=== PATIENT | male | born 1975 | race Caucasian/White ===

== ENCOUNTER 2018-03-04 15:30 | Emergency (ER) | payer MEDICARE, MEDICAID ==
[2018-03-04 16:07] LABS: #Lymphocytes 1.1 thou/uL (1.20-3.40); #Monocytes 0.6 thou/uL (0.11-0.59); #Neutrophils 9.5 thou/uL (1.40-6.50); %Eosinophils 0.4 % (0.0-10.0); %Lymphocytes 9.9 % (21.0-51.0); %Monocytes 5.6 % (0.0-10.0); %Neutrophils 84.1 % (42.0-75.0); Hemoglobin 13.8 g/dL (14.0-18.0); Mean Corpuscular Hemoglobin 32.8 pg (27.0-31.0); Mean Corpuscular Volume 96.4 fl (80.0-94.0); Mean Platelet Volume 9.7 fL (7.4-10.4); Platelet Count 149 thou/uL (130-400); RBC Distribution Width 12.9 % (11.5-14.5); Red Blood Cell (RBC) Count 4.22 mill/uL (4.70-6.10); White Blood Cell (WBC) Count 11.3 thou/uL (4.8-10.8)
[2018-03-04 16:12] LABS: Prothrombin Time 23.3 SEC (12.0-14.7)
[2018-03-04 16:13] LABS: PTT 36.1 SEC (22.9-36.1)
[2018-03-04 16:29] LABS: ALT (SGPT) 12 U/L (8-55); AST (SGOT) 15 U/L (5-34); Albumin 4.2 g/dL (3.5-5.0); Alkaline Phosphatase 87 U/L (40-150); Anion Gap 14 mmol/L (10-20); BUN (Urea Nitrogen) 35 mg/dL (8.9-20.6); Bilirubin, Total 0.5 mg/dL (0.2-1.2); Calc. Creatinine Clearance 0 mL/min (70-130); Calcium 9.4 mg/dL (7.8-10.44); Carbon Dioxide 22 mmol/L (22-29); Chloride 109 mmol/L (98-107); Estimated GFR-MDRD 44; Glucose 132 mg/dL (70-105); Potassium 4.9 mmol/L (3.5-5.1); Protein, Total 7.2 g/dL (6.0-8.3); Sodium 140 mmol/L (136-145)
[2018-03-04 16:43] LABS: Bilirubin Negative (Negative); Blood, Urine Negative (Negative); Clarity CLEAR (Clear); Glucose, Urine (Dipstick) Negative (Negative); Leukocyte Negative (Negative); Nitrite Negative (Negative); Protein, Urine (Dipstick) Trace mg/dL (Neg-Trace); Specific Gravity, Urine 1.022 (1.002-1.036); Urobilinogen 0.2 mg/dL (0.2-1.0); pH, Urine 5.5 (5.0-9.0)
[2018-03-04 16:55] LABS: Amphetamine Not Detected (NotDetected); Barbiturates Screen Not Detected (NotDetected); Benzodiazepine Screen Not Detected (NotDetected); Cocaine Metabolite Screen Not Detected (NotDetected); Medtox Control Line Valid? VALID (VALID); Medtox Reader # READER 1; Methadone Not Detected (NotDetected); Methamphetamine Not Detected (NotDetected); Opiate Screen Not Detected (NotDetected); Oxycodone Screen Not Detected (NotDetected); Phencyclidine (PCP) Not Detected (NotDetected); THC/Cannabinoid Screen Detected (NotDetected); Tricyclic Screen Not Detected (NotDetected)
--- NOTE | 2018-03-04 17:25 | RAD ---
UPRIGHT PORTABLE CHEST ONE VIEW: HISTORY: A 42-year-old male with a history of a cough with a possible seizure when unconscious. Back pain fro m coughing. FINDINGS: Monitor leads overly the chest. Heart size is normal. Lungs are clear. No pneumonia, edema, or ple ural effusion. Stable from 06/22/2011. IMPRESSION: No active intrathoracic disease. POS: [facility]
== END 2018-03-04 19:04 | disposition home or self-care (01) ==
LOC: ERS 15:30
DX: J44.1 Chronic obstructive pulmonary disease with (acute) exacerbation (principal); R55 Syncope and collapse; M10.9 Gout, unspecified; I10 Essential (primary) hypertension; F17.210 Nicotine dependence, cigarettes, uncomplicated; Z79.01 Long term (current) use of anticoagulants; Z79.899 Other long term (current) drug therapy
CPT/HCPCS: 36415; 71045; 80053; 80306; 81003; 83880; 85025; 85379; 85610; 85730; 94640; 96360; 96361; J7620

== ENCOUNTER 2018-03-14 10:19 | Emergency (ER) | payer MEDICARE, MEDICAID ==
[2018-03-14 10:48] LABS: #Eosinphils 0.2 thou/uL (0.0-0.7); #Lymphocytes 1.5 thou/uL (1.20-3.40); #Neutrophils 6.3 thou/uL (1.40-6.50); %Basophils 0.2 % (0.0-1.0); %Lymphocytes 16.5 % (21.0-51.0); %Monocytes 10.6 % (0.0-10.0); %Neutrophils 70.7 % (42.0-75.0); Hemoglobin 13.6 g/dL (14.0-18.0); Mean Corpuscular HGB CONC 33.9 g/dL (32.0-36.0); Mean Corpuscular Hemoglobin 32.2 pg (27.0-31.0); Mean Platelet Volume 10.1 fL (7.4-10.4); Platelet Count 141 thou/uL (130-400); RBC Distribution Width 13.2 % (11.5-14.5); Red Blood Cell (RBC) Count 4.22 mill/uL (4.70-6.10); White Blood Cell (WBC) Count 8.9 thou/uL (4.8-10.8)
[2018-03-14 11:06] LABS: CKMB 0.7 ng/mL (0-6.6); Troponin I Less than 0.010 ng/mL (< 0.028)
[2018-03-14 11:21] LABS: Anion Gap 12 mmol/L (10-20); BUN (Urea Nitrogen) 22 mg/dL (8.9-20.6); Calc. Creatinine Clearance 0 mL/min (70-130); Carbon Dioxide 23 mmol/L (22-29); Chloride 105 mmol/L (98-107); Estimated GFR-MDRD 58; Glucose 136 mg/dL (70-105); Potassium 5.9 mmol/L (3.5-5.1); Sodium 134 mmol/L (136-145)
--- NOTE | 2018-03-14 11:32 | RAD ---
PORTABLE CHEST: History: Dyspnea. Comparison: 03-04-18 FINDINGS: Lung peña are clear. No infiltrate. Heart and mediastinum unremarkable. IMPRESSION: No acute abnormality. POS: [facility]
[2018-03-14] MEDS ORDERED: ISOVUE-370 76%-LOCM 1 ML ONE (13:09)
--- NOTE | 2018-03-14 13:49 | CT ---
CT PULMONARY ANGIOGRAM WITH IV CONTRAST AND 3D POST PROCESSING: HISTORY: Chest pain. FINDINGS: There is good contrast opacification of the pulmonary arterial vasculature without filling defects or pulmonary embolism. The thoracic aorta demonstrates no evidence of aneurysm or dissection. No pericardial effusions are seen. Tiny pleural effusions are noted. There are dilated and tortuou s azygous and carey-azygous veins and prominence of subcutaneous veins. The upper abdominal tomograms demonstrate an enlarged spleen, measuring 14 cm. There are mild degenerative changes in the spine. IMPRESSION: No CT evidence of pulmonary embolism. POS: [facility]
--- NOTE | 2018-03-17 16:07 | EKG ---
Test Reason : Blood Pressure : / mmHG Vent. Rate : 076 BPM Atrial Rate : 076 BPM P-R Int : 124 ms QRS Dur : 096 ms QT Int : 344 ms P-R-T Axes : 038 013 022 degrees QTc Int : 387 ms Normal sinus rhythm Possible Left atrial enlargement Borderline ECG Confirmed by TICO WINTER ([id number]), visual effects editor ALEXI CROSS ([id number]) on 03/17/2018 4:07:37 PM Referred By: Confirmed By:TICO WINTER
== END 2018-03-14 13:43 | disposition home or self-care (01) ==
LOC: ERS 10:19
DX: R09.1 Pleurisy (principal); I82.403 Acute embolism and thrombosis of unspecified deep veins of lower extremity, bilateral; M10.9 Gout, unspecified; I10 Essential (primary) hypertension; Z79.01 Long term (current) use of anticoagulants; Z79.899 Other long term (current) drug therapy; Z87.891 Personal history of nicotine dependence
CPT/HCPCS: 71045; 71275; 80048; 82553; 83880; 84484; 85025; 93005; 94640; 96360; J7620

== ENCOUNTER 2018-03-29 15:29 | Emergency (ER) | payer MEDICARE, MEDICAID ==
--- NOTE | 2018-03-29 16:03 | RAD ---
RIGHT ELBOW 4 VIEWS: Date: 03/29/18 HISTORY: Elbow pain. FINDINGS: There are some minimal arthritic changes of the elbow. Tiny spur of the coronoid process and a small spur of the olecranon. There is soft tissue fullness which suggests the possibility of an olecranon b ursitis. There is no joint effusion or fracture. IMPRESSION: 1. Minimal arthritic changes of the elbow. 2. Soft tissue prominence in the region of the olecranon bursa, raising the possibility of bursitis. Clinical correlation recommended. POS: [facility]
[2018-03-29 16:16] LABS: #Eosinphils 0.3 thou/uL (0.0-0.7); #Lymphocytes 1.5 thou/uL (1.20-3.40); #Monocytes 0.8 thou/uL (0.11-0.59); #Neutrophils 5.2 thou/uL (1.40-6.50); %Basophils 0.3 % (0.0-1.0); %Eosinophils 4.1 % (0.0-10.0); %Lymphocytes 19.3 % (21.0-51.0); %Monocytes 9.8 % (0.0-10.0); %Neutrophils 66.6 % (42.0-75.0); Hemoglobin 14.3 g/dL (14.0-18.0); Mean Corpuscular Volume 94.3 fl (80.0-94.0); Mean Platelet Volume 9.9 fL (7.4-10.4); Platelet Count 144 thou/uL (130-400); RBC Distribution Width 12.6 % (11.5-14.5); Red Blood Cell (RBC) Count 4.45 mill/uL (4.70-6.10); White Blood Cell (WBC) Count 7.9 thou/uL (4.8-10.8)
[2018-03-29 16:36] LABS: ALT (SGPT) 18 U/L (8-55); AST (SGOT) 17 U/L (5-34); Albumin 4.2 g/dL (3.5-5.0); Alkaline Phosphatase 97 U/L (40-150); Anion Gap 11 mmol/L (10-20); BUN (Urea Nitrogen) 33 mg/dL (8.9-20.6); Bilirubin, Total 1.2 mg/dL (0.2-1.2); Calc. Creatinine Clearance 0 mL/min (70-130); Calcium 9.6 mg/dL (7.8-10.44); Carbon Dioxide 23 mmol/L (22-29); Chloride 109 mmol/L (98-107); Estimated GFR-MDRD 46; Globulin 3.2 g/dL (2.4-3.5); Glucose 105 mg/dL (70-105); Protein, Total 7.4 g/dL (6.0-8.3); Sodium 138 mmol/L (136-145)
== END 2018-03-29 16:48 | disposition home or self-care (01) ==
LOC: ERS 15:29
DX: M70.21 Olecranon bursitis, right elbow (principal); I10 Essential (primary) hypertension; F41.9 Anxiety disorder, unspecified; F17.210 Nicotine dependence, cigarettes, uncomplicated; Z79.899 Other long term (current) drug therapy; Z79.891 Long term (current) use of opiate analgesic; Z79.01 Long term (current) use of anticoagulants
CPT/HCPCS: 36415; 80053; 85025

== ENCOUNTER 2024-03-08 07:09 | Outpatient (CLI) | payer OTHER ==
[2024-03-08] MEDS ORDERED: Iopamidol 370 76% 100 ML VIAL ONE (11:49)
== END 2024-03-08 07:10 | disposition home or self-care (01) ==
LOC: CT 07:09
PROVIDERS: ATTEND Internal Medicine Cardiovascular Disease
DX: I82.220 Acute embolism and thrombosis of inferior vena cava (principal); I87.8 Other specified disorders of veins; K80.20 Calculus of gallbladder without cholecystitis without obstruction; N28.1 Cyst of kidney, acquired; Q26.8 Other congenital malformations of great veins
CPT/HCPCS: 74178; Q9967

== ENCOUNTER 2024-09-05 07:44 | Outpatient (CLI) | payer MEDICARE, OTHER | END 2024-09-05 07:45 | disposition home or self-care (01) | LOC: CT 07:44 | PROVIDERS: ATTEND Radiology Diagnostic Radiology | DX: I87.1 Compression of vein (principal); K80.20 Calculus of gallbladder without cholecystitis without obstruction; N28.1 Cyst of kidney, acquired; N26.1 Atrophy of kidney (terminal) | CPT/HCPCS: 74174 ==

== ENCOUNTER 2025-06-30 20:14 | Inpatient (IN) | payer MEDICARE, SELFPAY ==
[~2025-06-30 20:14] MED LIST: Iopamidol-370 76% 500 ML MDV (1 ML CHARGE) ONE
[2025-06-30 20:49] LABS: #Basophils Less than 0.03 10x3/uL (0.0-0.2); #Eosinophils 0.40 10x3/uL (0.0-0.7); #Monocytes 0.50 10x3/uL (0.11-0.59); #Neutrophils 3.73 10x3/uL (1.40-6.50); %Basophils 0.3 % (0.0-1.0); %Eosinophils 6.6 % (0.0-10.0); %Lymphocytes 22.3 % (21.0-51.0); %Monocytes 8.3 % (0.0-10.0); %Neutrophils 62.0 % (42.0-75.0); Hematocrit 35.5 % (42.0-52.0); Hemoglobin 10.8 g/dL (14.0-18.0); Mean Corpuscular Hemoglobin 31.4 pg (27.0-31.0); Mean Corpuscular Volume 103.2 fL (78.0-98.0); Platelet Count 161 10x3/uL (130-400); Red Blood Cell (RBC) Count 3.44 mill/uL (4.70-6.10); White Blood Cell (WBC) Count 6.02 10x3/uL (4.8-10.8)
[2025-06-30] MEDS ORDERED: LevoFLOXacin 750 mg/D5W 150 ml Premix Bag ONE (20:57)
[2025-06-30] MEDS ORDERED: Acetaminophen 500 MG TAB ONE (20:57)
[2025-06-30] MEDS ORDERED: metroNIDAZOLE 500 MG (100 mL) BAG ONE (20:57)
[2025-06-30] MEDS ORDERED: Cefepime 2 GM VIAL ONE (20:58)
[2025-06-30 21:04] LABS: ALT (SGPT) Less than 7 U/L (Less than 45); AST (SGOT) 16 U/L (11-34); Albumin 3.7 g/dL (3.1-4.5); Alkaline Phosphatase 96 U/L (40-110); Anion Gap 15 mmol/L (10-20); BUN (Urea Nitrogen) 26 mg/dL (8.9-20.6); Bilirubin, Total 0.5 mg/dL (0.3-1.2); Calc. Creatinine Clearance 0 mL/min (70-130); Calcium 9.6 mg/dL (7.8-10.44); Carbon Dioxide 24 mmol/L (22-29); Chloride 109 mmol/L (98-107); Globulin 3.7 g/dL (2.4-3.5); Glucose 124 mg/dL (70-105); Potassium 5.8 mmol/L (3.5-5.1); Sodium 142 mmol/L (136-145)
[2025-06-30 21:56] LABS: CRP, High Sensitivity at Bryan 4.02 mg/dL (< or = 0.5)
[2025-06-30 21:57] LABS: CK (CPK) 93.0 U/L (30-200)
[2025-06-30] MEDS ORDERED: Acetaminophen 325 MG TAB PO PRN (23:53)
[2025-06-30] MEDS ORDERED: Ondansetron PF 4 MG/2 ML Vial IVP PRN (23:53)
[2025-07-01] MEDS ORDERED: Furosemide 20 MG (2 mL) VIAL SLOW IVP SCH (00:30)
[2025-07-01] MEDS: Vancomycin (BATCH) 2.5 GM in Premix 1 BAG IVPB SCH (01:15)
[2025-07-01] MEDS ORDERED: fentaNYL PF 100 MCG/2 ML SYRINGE ONE ×2 (02:03→02:46)
[2025-07-01] MEDS ORDERED: PROPOFOL 20 ML ONE (02:03)
[2025-07-01] MEDS ORDERED: Lidocaine 1% PF 5 ML VIAL ONE (02:04)
[2025-07-01] MEDS ORDERED: SUCCINYLCHOLINE/SOD CL,ISO/PF 200 MG/10 ML SYRINGE FS ONE (02:04)
[2025-07-01] MEDS ORDERED: Ondansetron PF 4 MG/2 ML Vial ONE (02:04)
[2025-07-01] MEDS ORDERED: Rocuronium Bromide 10 MG/ML (10ML VIAL) ONE (02:47)
[2025-07-01] MEDS ORDERED: SUGAMMADEX SODIUM 200 MG/2 ML VIAL ONE ×2 (02:48→02:49)
[2025-07-01 03:48] VITALS: BMI 43.2
[2025-07-01] MEDS: Ketorolac Tromethamine 30 MG (1 mL) VIAL IVP PRN (04:31)
[2025-07-01] MEDS: Clindamycin/D5W 900 MG in Premix 1 BAG IVPB SCH (05:44)
[2025-07-01 07:17] LABS: #Basophils Less than 0.03 10x3/uL (0.0-0.2); #Eosinophils 0.08 10x3/uL (0.0-0.7); #Monocytes 0.21 10x3/uL (0.11-0.59); #Neutrophils 6.70 10x3/uL (1.40-6.50); %Basophils 0.3 % (0.0-1.0); %Eosinophils 1.0 % (0.0-10.0); %Lymphocytes 7.7 % (21.0-51.0); %Monocytes 2.7 % (0.0-10.0); %Neutrophils 87.8 % (42.0-75.0); Hematocrit 34.7 % (42.0-52.0); Hemoglobin 10.5 g/dL (14.0-18.0); Mean Corpuscular Hemoglobin 31.5 pg (27.0-31.0); Mean Corpuscular Volume 104.2 fL (78.0-98.0); Platelet Count 148 10x3/uL (130-400); Red Blood Cell (RBC) Count 3.33 mill/uL (4.70-6.10); White Blood Cell (WBC) Count 7.64 10x3/uL (4.8-10.8)
[2025-07-01 07:33] LABS: Vancomycin, Random 24.3 ug/mL (See Comment)
[2025-07-01 07:35] LABS: Anion Gap 10 mmol/L (10-20); BUN (Urea Nitrogen) 25 mg/dL (8.9-20.6); Calc. Creatinine Clearance 158 mL/min (70-130); Calcium 8.9 mg/dL (7.8-10.44); Carbon Dioxide 23 mmol/L (22-29); Chloride 111 mmol/L (98-107); Glucose 135 mg/dL (70-105); Potassium 7.2 mmol/L (3.5-5.1); Sodium 137 mmol/L (136-145)
[2025-07-01] MEDS: LOKELMA 10 GM PACKET PO SCH ×2 (08:24→13:47)
[2025-07-01] MEDS: Dextrose 50% Abboject 50 ML SYRINGE SLOW IVP SCH (08:24)
[2025-07-01] MEDS: Acetaminophen 500 MG TAB PO SCH (08:26)
[2025-07-01] MEDS: Enoxaparin 30 MG (0.3 mL) SYRINGE SC SCH (08:26)
[2025-07-01] MEDS: Allopurinol 300 MG TAB PO SCH (08:27)
[2025-07-01] MEDS: CALCIUM GLUC 1 GM/NS 50 ML IV Bag IVPB SCH (09:23)
[2025-07-01] MEDS: oxyCODONE 5 MG TAB PO PRN (09:28)
[2025-07-01 10:49] LABS: Anion Gap 12 mmol/L (10-20); BUN (Urea Nitrogen) 25 mg/dL (8.9-20.6); Calc. Creatinine Clearance 155 mL/min (70-130); Calcium 9.3 mg/dL (7.8-10.44); Carbon Dioxide 22 mmol/L (22-29); Chloride 111 mmol/L (98-107); Glucose 175 mg/dL (70-105); Potassium 6.3 mmol/L (3.5-5.1); Sodium 139 mmol/L (136-145)
[2025-07-01] MEDS: Enoxaparin 40 MG (0.4 mL) SYRINGE SC SCH (11:26)
[2025-07-01] MEDS: Vancomycin 1 GM in Premix 1 BAG IVPB SCH (11:26)
[2025-07-01 14:31] VITALS: BMI 43.2
[2025-07-01] MEDS ORDERED: Sodium Hypochlorite 0.5% 473 ML BOT TOP PRN (14:46)
[2025-07-01 15:52] LABS: Anion Gap 16 mmol/L (10-20); BUN (Urea Nitrogen) 23 mg/dL (8.9-20.6); Calc. Creatinine Clearance 152 mL/min (70-130); Calcium 9.1 mg/dL (7.8-10.44); Carbon Dioxide 23 mmol/L (22-29); Chloride 108 mmol/L (98-107); Glucose 165 mg/dL (70-105); Potassium 5.8 mmol/L (3.5-5.1); Sodium 141 mmol/L (136-145)
[2025-07-01] MEDS ORDERED: LevoFLOXacin 750 mg/D5W 750 MG in Premix 1 BAG IVPB SCH (22:00)
[2025-07-01] MEDS: Vancomycin 1.5 GM / NS 500ML VIAL-2-BAG IVPB SCH (22:45)
[2025-07-02 04:19] LABS: Vancomycin, Random 31.3 ug/mL (See Comment)
[2025-07-02 04:24] LABS: #Basophils Less than 0.03 10x3/uL (0.0-0.2); #Eosinophils 0.14 10x3/uL (0.0-0.7); #Monocytes 0.58 10x3/uL (0.11-0.59); #Neutrophils 4.51 10x3/uL (1.40-6.50); %Basophils 0.3 % (0.0-1.0); %Eosinophils 2.1 % (0.0-10.0); %Lymphocytes 20.4 % (21.0-51.0); %Monocytes 8.7 % (0.0-10.0); %Neutrophils 67.6 % (42.0-75.0); Hematocrit 35.1 % (42.0-52.0); Hemoglobin 10.3 g/dL (14.0-18.0); Mean Corpuscular Hemoglobin 31.7 pg (27.0-31.0); Mean Corpuscular Volume 108.0 fL (78.0-98.0); Platelet Count 129 10x3/uL (130-400); Red Blood Cell (RBC) Count 3.25 mill/uL (4.70-6.10); White Blood Cell (WBC) Count 6.67 10x3/uL (4.8-10.8)
[2025-07-02 04:25] LABS: Anion Gap 15 mmol/L (10-20); BUN (Urea Nitrogen) 18 mg/dL (8.9-20.6); Calc. Creatinine Clearance 148 mL/min (70-130); Calcium 8.9 mg/dL (7.8-10.44); Carbon Dioxide 21 mmol/L (22-29); Chloride 114 mmol/L (98-107); Glucose 120 mg/dL (70-105); Potassium 4.8 mmol/L (3.5-5.1); Sodium 145 mmol/L (136-145)
[2025-07-02] MEDS ORDERED: Enoxaparin 40 MG (0.4 mL) SYRINGE SC SCH (09:00)
[2025-07-02] MEDS: Enoxaparin 30 MG (0.3 mL) SYRINGE SC SCH (09:17)
[2025-07-02] MEDS: Vancomycin 1 GM in Premix 1 BAG IVPB SCH (11:02)
[2025-07-02] MEDS: oxyCODONE 5 MG TAB PO PRN (13:46)
[2025-07-02] MEDS ORDERED: Nystatin Powder 15 GM BOT TOP PRN (13:53)
[2025-07-03] MEDS: Melatonin 3 MG TAB PO PRN (01:04)
[2025-07-03 06:16] LABS: #Basophils 0.03 10x3/uL (0.0-0.2); #Eosinophils 0.30 10x3/uL (0.0-0.7); #Monocytes 0.44 10x3/uL (0.11-0.59); #Neutrophils 3.03 10x3/uL (1.40-6.50); %Basophils 0.6 % (0.0-1.0); %Eosinophils 5.6 % (0.0-10.0); %Lymphocytes 27.8 % (21.0-51.0); %Monocytes 8.2 % (0.0-10.0); %Neutrophils 56.5 % (42.0-75.0); Hematocrit 33.9 % (42.0-52.0); Hemoglobin 10.3 g/dL (14.0-18.0); Mean Corpuscular Hemoglobin 31.4 pg (27.0-31.0); Mean Corpuscular Volume 103.4 fL (78.0-98.0); Platelet Count 159 10x3/uL (130-400); Red Blood Cell (RBC) Count 3.28 mill/uL (4.70-6.10); White Blood Cell (WBC) Count 5.36 10x3/uL (4.8-10.8)
[2025-07-03 06:33] LABS: Anion Gap 12 mmol/L (10-20); BUN (Urea Nitrogen) 18 mg/dL (8.9-20.6); Calc. Creatinine Clearance 161 mL/min (70-130); Calcium 9.4 mg/dL (7.8-10.44); Carbon Dioxide 25 mmol/L (22-29); Chloride 108 mmol/L (98-107); Glucose 100 mg/dL (70-105); Potassium 4.8 mmol/L (3.5-5.1); Sodium 140 mmol/L (136-145); Vancomycin, Random 25.2 ug/mL (See Comment)
[2025-07-03 16:45] VITALS: BP 148/95; TEMP 99.2
== END 2025-07-03 16:46 | disposition home or self-care (01) | DRG 717 ==
LOC: ERS 20:14 → T4-A 23:53 → IMCU/EMU 07-01 09:12 → T4-A 07-02 19:54
PROVIDERS: ADMIT Internal Medicine; ATTEND Internal Medicine
DX: N49.2 Inflammatory disorders of scrotum (principal); I82.413 Acute embolism and thrombosis of femoral vein, bilateral; L02.214 Cutaneous abscess of groin; N17.9 Acute kidney failure, unspecified; L30.4 Erythema intertrigo; N49.3 Fournier gangrene; M10.9 Gout, unspecified; F17.210 Nicotine dependence, cigarettes, uncomplicated; F10.90 Alcohol use, unspecified, uncomplicated; N18.30 Chronic kidney disease, stage 3 unspecified; I12.9 Hypertensive chronic kidney disease with stage 1 through stage 4 chronic kidney disease, or unspecified chronic kidney disease; F41.9 Anxiety disorder, unspecified; E87.5 Hyperkalemia; Z79.899 Other long term (current) drug therapy; Z79.01 Long term (current) use of anticoagulants
CPT/HCPCS: 36415; 74177; 80048; 80053; 80202; 82550; 83605; 85025; 86141; 87040; 87081; 93005; 93010; 96374; 96375; 97139; J0613; J0692; J1100; J1650; J1815; J1885; J1956; J2270; J2405; J2704; J3010; J3373; J3490; J7030; J7620; J7999; Q9967

== ENCOUNTER 2025-07-06 13:25 | Observation (INO) | payer OTHER, SELFPAY ==
[2025-07-06] MEDS ORDERED: Lidocaine 1% w/Epinephrine 1:100K 20 ML VIAL ONE (14:14)
[2025-07-06] MEDS ORDERED: KETAMINE 100 MG/ML (5ML VIAL) ONE (14:19)
[2025-07-06 14:51] LABS: #Basophils 0.05 10x3/uL (0.0-0.2); #Eosinophils 0.42 10x3/uL (0.0-0.7); #Monocytes 0.32 10x3/uL (0.11-0.59); #Neutrophils 3.39 10x3/uL (1.40-6.50); %Basophils 0.9 % (0.0-1.0); %Eosinophils 7.9 % (0.0-10.0); %Lymphocytes 16.8 % (21.0-51.0); %Monocytes 6.0 % (0.0-10.0); %Neutrophils 64.1 % (42.0-75.0); Hematocrit 46.0 % (42.0-52.0); Hemoglobin 14.3 g/dL (14.0-18.0); Mean Corpuscular Hemoglobin 31.6 pg (27.0-31.0); Mean Corpuscular Volume 101.8 fL (78.0-98.0); Platelet Count 138 10x3/uL (130-400); Red Blood Cell (RBC) Count 4.52 mill/uL (4.70-6.10); White Blood Cell (WBC) Count 5.30 10x3/uL (4.8-10.8)
[2025-07-06 14:59] LABS: ALT (SGPT) 12 U/L (Less than 45); AST (SGOT) 22 U/L (11-34); Albumin 3.2 g/dL (3.1-4.5); Alkaline Phosphatase 103 U/L (40-110); Anion Gap 11 mmol/L (10-20); BUN (Urea Nitrogen) 25 mg/dL (8.9-20.6); Bilirubin, Total 0.2 mg/dL (0.3-1.2); Calc. Creatinine Clearance 0 mL/min (70-130); Calcium 9.2 mg/dL (7.8-10.44); Carbon Dioxide 28 mmol/L (22-29); Chloride 110 mmol/L (98-107); Globulin 3.4 g/dL (2.4-3.5); Glucose 149 mg/dL (70-105); INR-International Normal Ratio 2.1; PTT 41.3 sec (22.9-36.1); Potassium 4.9 mmol/L (3.5-5.1); Prothrombin Time 23.7 sec (12.0-14.7); Sodium 144 mmol/L (136-145)
[2025-07-06] MEDS ORDERED: Ondansetron PF 4 MG/2 ML Vial IVP PRN (15:14)
[2025-07-06] MEDS ORDERED: Electrolyte Replacement Protocol 1 EACH FS SCH (15:15)
[2025-07-06] MEDS: Acetaminophen 325 MG TAB PO PRN (17:25)
[2025-07-06 17:36] VITALS: BMI 42.3
[2025-07-06] MEDS: HYDROcodone/Acetaminophen 5/325 mg Tablet PO PRN (19:25)
[2025-07-06] MEDS: Acetaminophen/Codeine 30-300mg Tablet PO PRN (22:22)
[2025-07-07] MEDS: Acetaminophen 325 MG TAB PO SCH (00:10)
[2025-07-07] MEDS: Mometasone 100 MCG HFA INHALER (RT USE) INH SCH (06:25)
[2025-07-07] MEDS ORDERED: Mometasone 100 MCG HFA INHALER (RT USE) INH PRN (06:34)
[2025-07-07 06:47] LABS: Anion Gap 10 mmol/L (10-20); BUN (Urea Nitrogen) 26 mg/dL (8.9-20.6); Calc. Creatinine Clearance 148 mL/min (70-130); Calcium 8.2 mg/dL (7.8-10.44); Carbon Dioxide 24 mmol/L (22-29); Chloride 110 mmol/L (98-107); Glucose 96 mg/dL (70-105); Potassium 4.3 mmol/L (3.5-5.1); Sodium 140 mmol/L (136-145)
[2025-07-07 07:20] LABS: #Basophils 0.05 10x3/uL (0.0-0.2); #Eosinophils 0.49 10x3/uL (0.0-0.7); #Monocytes 0.62 10x3/uL (0.11-0.59); #Neutrophils 5.76 10x3/uL (1.40-6.50); %Basophils 0.5 % (0.0-1.0); %Eosinophils 5.3 % (0.0-10.0); %Lymphocytes 21.6 % (21.0-51.0); %Monocytes 6.7 % (0.0-10.0); %Neutrophils 61.9 % (42.0-75.0); Hematocrit 27.1 % (42.0-52.0); Hemoglobin 8.3 g/dL (14.0-18.0); Mean Corpuscular Hemoglobin 31.8 pg (27.0-31.0); Mean Corpuscular Volume 103.8 fL (78.0-98.0); Platelet Count 166 10x3/uL (130-400); Red Blood Cell (RBC) Count 2.61 mill/uL (4.70-6.10); White Blood Cell (WBC) Count 9.30 10x3/uL (4.8-10.8)
[2025-07-07] MEDS: Gabapentin 100 MG CAP PO SCH (09:21)
[2025-07-07] MEDS: Allopurinol 300 MG TAB PO SCH (09:22)
[2025-07-07] MEDS: Pantoprazole 40 MG DR.TAB PO SCH (09:22)
[2025-07-07 14:27] VITALS: BMI 42.3
[2025-07-07 15:58] LABS: #Basophils 0.04 10x3/uL (0.0-0.2); #Eosinophils 0.38 10x3/uL (0.0-0.7); #Monocytes 0.49 10x3/uL (0.11-0.59); #Neutrophils 4.85 10x3/uL (1.40-6.50); %Basophils 0.5 % (0.0-1.0); %Eosinophils 4.8 % (0.0-10.0); %Lymphocytes 24.6 % (21.0-51.0); %Monocytes 6.1 % (0.0-10.0); %Neutrophils 60.6 % (42.0-75.0); Hematocrit 26.1 % (42.0-52.0); Hemoglobin 8.1 g/dL (14.0-18.0); Mean Corpuscular Hemoglobin 32.0 pg (27.0-31.0); Mean Corpuscular Volume 103.2 fL (78.0-98.0); Platelet Count 166 10x3/uL (130-400); Red Blood Cell (RBC) Count 2.53 mill/uL (4.70-6.10); White Blood Cell (WBC) Count 8.00 10x3/uL (4.8-10.8)
[2025-07-07 18:41] VITALS: BP 142/73; TEMP 98.3
== END 2025-07-07 18:56 | disposition home or self-care (01) ==
LOC: ERS 13:25 → SURG A 15:14
PROVIDERS: ADMIT Surgery; ATTEND Surgery
DX: L76.21 Postprocedural hemorrhage of skin and subcutaneous tissue following a dermatologic procedure (principal); Y83.8 Other surgical procedures as the cause of abnormal reaction of the patient, or of later complication, without mention of misadventure at the time of the procedure
CPT/HCPCS: 12004; 80048; 80053; 85025 ×3; 85610; 85730; 86850; 86900; 86901; 96374; 97139; 99285; G0378 ×3; J7120; 36415